=== PATIENT | male | born 1940 | race African-American/Black ===

== ENCOUNTER 2018-08-04 10:37 | Emergency (ER) | payer MEDICARE, MEDICAID ==
[~2018-08-04] VITALS: Ht 177.8 cm; Wt 100.0 kg
[~2018-08-04 10:37] MED LIST: ESOM20CA PO
[2018-08-04 16:45] VITALS: BP 148/89
== END 2018-08-04 16:50 | disposition home or self-care (01) ==
LOC: ER 10:54
DX: M62.838 Other muscle spasm (principal); I49.9 Cardiac arrhythmia, unspecified; K21.9 Gastro-esophageal reflux disease without esophagitis; E78.00 Pure hypercholesterolemia, unspecified; I10 Essential (primary) hypertension; I48.91 Unspecified atrial fibrillation; G31.89 Other specified degenerative diseases of nervous system; Z79.899 Other long term (current) drug therapy
CPT/HCPCS: 82962; 99284

== ENCOUNTER 2022-07-13 21:23 | Inpatient (IN) | payer MEDICARE, MEDICAID ==
[~2022-07-13] VITALS: Ht 185.4 cm; Wt 122.9 kg
[2022-07-14 00:17] LABS: BASOPHILS % 0.9 % (0.0-2.0); EOSINOPHILS % 6.7 % (0.0-5.0); HEMATOCRIT. 37.2 % (42.0-52.0); HEMOGLOBIN. 11.9 g/dL (14.0-18.0); LYMPHOCYTES % 29.3 % (20.0-50.0); MEAN CORPUSCULAR HEMOGLOBIN 24.6 pg (28.0-32.0); MEAN CORPUSCULAR VOLUME 76.8 fL (80.0-94.0); MEAN PLATELET VOLUME 7.4 fl (7.4-10.4); MONOCYTES % 14.9 % (2.0-8.0); NEUTROPHILS % 48.2 % (40.0-76.0); PLATELET 179 x1000/uL (130-400); RED BLOOD CELL COUNT 4.84 mill/uL (4.7-6.1); RED CELL DISTRIBUTION WIDTH 16.7 % (11.6-14.6)
[2022-07-14 00:22] LABS: CHLORIDE 104 mEq/L (98-107)
[2022-07-14 10:15] VITALS: BP 112/75
[2022-07-14] MEDS ORDERED: APIX5TAB PO (11:11)
[2022-07-14 12:00] VITALS: BP 129/79
[2022-07-14] MEDS ORDERED: DOCUSATE SODIUM 100MG CAPSULE PO PRN (13:00)
[2022-07-14] MEDS ORDERED: ACETAMINOPHEN 325MG TABLET PO PRN ×2 (13:00)
[2022-07-14] MEDS ORDERED: CLONIDINE 0.1MG TABLET PO PRN (13:00)
[2022-07-14] MEDS ORDERED: IPRATROPIUM/ALBUTEROL 0.5-3(2.5)MG/3ML NEB HHN PRN (13:00)
[2022-07-14] MEDS ORDERED: ONDANSETRON HCL 4MG/2ML INJ IV PRN (13:00)
[2022-07-14] MEDS ORDERED: LORAZEPAM 0.5MG TABLET PO PRN (13:00)
[2022-07-14] MEDS ORDERED: HYDROCODONE/ACETAMINOPHEN 5/325MG TABLET PO PRN (13:00)
[2022-07-14] MEDS ORDERED: OMEPRAZOLE 20MG CAPSULE EXTENDED RELEASE PO SCH (13:37)
[2022-07-14] MEDS ORDERED: NALOXONE HCL 0.4MG/ML VIAL IV PRN (13:45)
[2022-07-14 16:00] VITALS: BP_SYST 109; BP_SYST 114; BP_SYST 118; BP_DIAS 56; BP_DIAS 58; BP_DIAS 60
[2022-07-14] MEDS ORDERED: APIXABAN 5 MG TABLET PO SCH (17:40)
[2022-07-15] MEDS ORDERED: AMLODIPINE 2.5MG TABLET PO SCH (09:00)
== END 2022-07-14 19:56 | disposition left against medical advice (07) | DRG 74 ==
LOC: ER 21:23 → 8WST 07-14 04:22 → EDBEDREQTM 07-14 04:33 → EDBEDREQ 07-14 04:33
PROVIDERS: ADMIT Internal Medicine; ATTEND Internal Medicine
DX: G90.8 Other disorders of autonomic nervous system (principal); G45.9 Transient cerebral ischemic attack, unspecified; I48.20 Chronic atrial fibrillation, unspecified; K21.9 Gastro-esophageal reflux disease without esophagitis; E78.00 Pure hypercholesterolemia, unspecified; R77.8 Other specified abnormalities of plasma proteins; D50.9 Iron deficiency anemia, unspecified; D72.10 Eosinophilia, unspecified; I25.10 Atherosclerotic heart disease of native coronary artery without angina pectoris; H40.9 Unspecified glaucoma; I11.9 Hypertensive heart disease without heart failure; Z53.29 Procedure and treatment not carried out because of patient's decision for other reasons; I25.2 Old myocardial infarction; Z79.01 Long term (current) use of anticoagulants; Z79.899 Other long term (current) drug therapy; Z86.73 Personal history of transient ischemic attack (TIA), and cerebral infarction without residual deficits
CPT/HCPCS: 36415; 71045; 80053; 80061; 82728; 83036; 83540; 83550; 84484; 85025; 93005; 93306; 93880; 99285